=== PATIENT | female | born 1985 | race Two or more races ===

== ENCOUNTER 2019-06-06 01:15 | Emergency (ER) | payer SELFPAY ==
--- NOTE | 2019-06-06 01:36 | ER Document Report ---
ED General - General Chief Complaint: Bee Sting Stated Complaint: POSSIBLE ALLERGIC REACTION Time Seen by Provider: 06/06/19 01:36 Primary Care Provider: INES LUNDBERG MD [ACTIVE STAFF] - Follow up in 3-5 days (primary care. ) Notes: Patient is a 33-year-old female that presents to the emergency department for chief complaint of bee sting to the left ring finger. 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 And was using her hand all day and it seemed to get worse so she decided come the emergency department. She did take Benadryl as well as Motrin prior to ED arrival, she states she has a burning sensation in her hand that is persistent and constant she currently rates her pain as a 6 out of 10. She denies any pain at the tip of the finger, denies any pain with extension of her finger. No fevers. No other complaints at this time. Past Medical History: Denies chronic medical conditions Past Surgical History: Social History: Admits to smoking cigarettes and drinking alcohol socially, denies illicit drug use. Family History: Reviewed and noncontributory for presenting illness Allergies: Reviewed, see documented allergy list. REVIEW OF SYSTEMS: Other than noted above, the 12 point review of systems was reviewed with the patient and were negative, all pertinent findings are included in the HPI. PHYSICAL EXAMINATION: Vital signs reviewed, nursing noted reviewed. GENERAL: Well-appearing, well-nourished and in no acute distress. HEAD: Atraumatic, normocephalic. EYES: Eyes appear normal, extraocular movements intact, sclera anicteric, conjunctiva are normal. ENT: nares patent, oropharynx clear without exudates. Moist mucous membranes. NECK: Normal range of motion, supple without lymphadenopathy LUNGS: Breath sounds clear to auscultation bilaterally and equal. No wheezes rales or rhonchi. HEART: Regular rate and rhythm without murmurs EXTREMITIES: Left ring finger noted to have erythema on the and edema noted at the base and palmar aspect, no circumferential erythema, no pain with passive extension of the ring finger, and no tenderness along the flexor tendon. There is tenderness over the area of erythema, but none distally. No fusiform swelling. The rest the patient's extremity exam is grossly unremarkable. Her cap refill is less than 3 seconds in all digits. Sensation intact distally as well. NEUROLOGICAL: No focal neurological deficits. Moves all extremities spontaneously Motor and sensory grossly intact on exam. PSYCH: Normal mood, normal affect. SKIN: Warm, Dry, normal turgor, no rashes or lesions noted on exposed skin TRAVEL OUTSIDE OF THE [place] IN LAST 30 DAYS: No - Related Data Allergies/Adverse Reactions: Penicillins Allergy (Verified 06/06/19 01:49) Past Medical History - Social History Smoking Status: Current Every Day Smoker Family History: Reviewed & Not Pertinent Patient has suicidal ideation: No Patient has homicidal ideation: No Physical Exam - Vital signs Vitals: Temp Pulse Resp BP Pulse Ox 97.7 F 91 18 155/90 H 97 06/06/19 01:19 06/06/19 01:19 06/06/19 01:19 06/06/19 01:06/06/19 01:19 Course - Re-evaluation Re-evalutation: Patient seen and examined vital signs reviewed. Patient was evaluated and treated as appropriate for the patient's presenting symptoms and complaint, with consideration of any critical or life threatening conditions that may be associated with their obtained history and exam as noted above. Patient was treated with p.o. doxycycline, prednisone and given a tetanus update The patient was re-evaluated and was stable Evaluation was most consistent with insect sting to the left ring finger, causing local inflammation, will treat with prednisone, advised ice therapy, and prophylaxing with doxycycline, for 7 days advised follow-up with her primary care. She is also encouraged of her symptoms worsen or do not improve to return to the emergency department. Plan of care was discussed with the patient at this point, after careful consid eration I feel that that patient can be discharged from the emergency department, the patient was educated treatments and reasons to return to the emergency department based on their presumed diagnosis as noted above, they were advised to followup with a primary care physician in 2-3 days. Patient was agreeable to plan of care. *Note is created using voice recognition software and may contain spelling, syntax or grammatical errors. - Vital Signs Vital signs: Temp Pulse Resp BP Pulse Ox 97.7 F 91 18 155/90 H 97 06/06/19 01:19 06/06/19 01:19 06/06/19 01:19 06/06/19 01:19 06/06/19 01:19 Discharge - Discharge Clinical Impression: Insect sting Qualifiers: Encounter type: initial encounter Injury intent: undetermined intent Qualified Code(s): T63.484A - Toxic effect of venom of other arthropod, undetermined, initial encounter Condition: Stable Disposition: HOME, SELF-CARE Instructions: Swollen Insect Bite or Sting ([facility]) Additional Instructions: Please complete the entire course of steroids and antibiotics, also advise using ice therapy, you can also take Benadryl to help with swelling. If you develop worsening swelling after tomorrow, or develop fever, do not hesitate to return to the emergency department to be reevaluated. Prescriptions: Doxycycline Hyclate 100 mg PO BID #14 capsule Prednisone 40 mg PO DAILY #16 tablet Referrals: INES LUNDBERG MD [ACTIVE STAFF] - Follow up in 3-5 days (primary care. )
[2019-06-06] MEDS ORDERED: PREDNISONE 20 MG TABLET PO ONE (01:46)
[2019-06-06] MEDS ORDERED: DOXYCYCLINE HYCLATE 100 MG TABLET PO ONE (01:46)
[2019-06-06] MEDS ORDERED: DIPH/PERTUSS(ACELL)/TETANUS VAC/PF 0.5 ML SYR (>=10YO) IM ONE (01:47)
[2019-06-06] MEDS ORDERED: HYDROCODONE/ACETAMINOPHEN 5-325 MG (6 TAB/ER DISP) PO PRN (01:54)
[2019-06-06 02:12] VITALS: BP 134/86
== END 2019-06-06 02:17 | disposition home or self-care (01) ==
LOC: ER 01:15
DX: T63.441A Toxic effect of venom of bees, accidental (unintentional), initial encounter (principal); X58.XXXA Exposure to other specified factors, initial encounter; F17.210 Nicotine dependence, cigarettes, uncomplicated; Z88.0 Allergy status to penicillin; Z23 Encounter for immunization
CPT/HCPCS: 90715; J7512; 90471; 99282